=== PATIENT | female | born 1945 | race Caucasian/White ===

== ENCOUNTER 2018-01-18 07:36 | Day surgery (SDC) | payer OTHER ==
[~2018-01-18] VITALS: Ht 165.1 cm; Wt 106.2 kg
[2018-01-18] VITALS (7 sets, daily range): BP systolic 115–160; BP diastolic 57–81
[~2018-01-18 07:36] MED LIST: ADVAIR 250/501 DISK IH; GLUCOPHAGE500 MG PO; LIPITOR40 MG PO; Levothroid,Synthroid PO; PROAIR HFA8.5 GM IH; PROVENTIL,2.5 MG/0.5 IH; SYNTHROID25 MCG PO; SYNTHROID50 MCG PO; Singulair PO; VITAMIN D33000 UNIT PO; ZOLOFT25 MG PO; ZOLOFT50 MG PO; Zoloft PO
[2018-01-19 04:00] VITALS: BP 139/70
[2018-01-19 08:51] VITALS: BP 113/56
== END 2018-01-19 12:01 | disposition home or self-care (01) ==
LOC: SDC 07:36 → 2SOUTH 11:14 → 2EAST 11:14 → SDC 12:06 → ENRESERV 15:45 → 2EAST 16:51
PROVIDERS: Surgery
PROC: 0WUF0JZ Supplement Abdominal Wall with Synthetic Substitute, Open Approach (ICD-10-PCS; principal; 2018-01-18)
DX: K42.0 Umbilical hernia with obstruction, without gangrene (principal); E66.01 Morbid (severe) obesity due to excess calories; Z68.38 Body mass index [BMI] 38.0-38.9, adult; J44.9 Chronic obstructive pulmonary disease, unspecified; E11.9 Type 2 diabetes mellitus without complications; E03.9 Hypothyroidism, unspecified; Z87.891 Personal history of nicotine dependence; Z79.84 Long term (current) use of oral hypoglycemic drugs; Z88.1 Allergy status to other antibiotic agents
CPT/HCPCS: 82948; 94002; 94640; 94640 76; 94760; 94799; 99202; C1781; G0378; J0131; J0690; J1100; J1170; J1815; J2250; J2405; J2710; J3010; J7120; J7643; Q0175; S0020